=== PATIENT | male | born 2000 | race African-American/Black ===

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

== ENCOUNTER 2023-07-03 04:19 | Inpatient (IN) | payer OTHER ==
[2023-07-03] MEDS ORDERED: SODIUM CHLORIDE 0.9% 500 ML 500 ML IV STA (04:27)
[2023-07-03] MEDS ORDERED: DILTIAZEM DRIP BOLUS FROM BAG 1 MG SOLN IV ONE (04:43)
[2023-07-03] MEDS ORDERED: DILTIAZEM 125 MG in SODIUM CHLORIDE 0.9% 100 ML IV SCH ×2 (04:45→10:42)
[2023-07-03 05:14] LABS: ALT 29 U/L (4-49); African American GFR (CKD) >90 (>60 ml/min/1.73 sqM); Albumin 4.4 g/dL (3.5-5.0); Anion Gap 17 mmol/L; Blood Urea Nitrogen 11 mg/dL (9-20); Carbon Dioxide 17 mmol/L (22-30); Chloride 104 mmol/L (98-107); Glucose 132 mg/dL (74-99); Non-African American GFR(CKD) >90 (>60 ml/min/1.73 sqM); Sodium 138 mmol/L (137-145); Total Bilirubin 0.8 mg/dL (0.2-1.3); Total Protein 7.7 g/dL (6.3-8.2)
[2023-07-03 05:17] LABS: AST 28 U/L (17-59); Alkaline Phosphatase 110 U/L (38-126); Magnesium 1.5 mg/dL (1.6-2.3); Potassium 3.7 mmol/L (3.5-5.1)
[2023-07-03] MEDS ORDERED: MAGNESIUM SULFATE-D5W PMX 1 GM in DEXTROSE/WATER 1 100ML.BAG IVPB ONE (05:23)
[2023-07-03 05:44] LABS: Basophils % (A) 1 %; Eosinophils # (A) 0.4 k/uL (0-0.7); Eosinophils % (A) 6 %; HCT 53.9 % (39.0-53.0); HGB 17.5 gm/dL (13.0-17.5); Lymphocytes # (A) 1.3 k/uL (1.0-4.8); Lymphocytes % (A) 20 %; MCH 27.7 pg (25.0-35.0); MCHC 32.4 g/dL (31.0-37.0); MCV 85.2 fL (80.0-100.0); Mean Platelet Volume 9.2; Monocytes # (A) 0.5 k/uL (0-1.0); Monocytes % (A) 8 %; Neutrophils % (A) 63 %; Platelet Count 166 k/uL (150-450); RBC 6.33 m/uL (4.30-5.90); RDW 14.1 % (11.5-15.5); WBC 6.4 k/uL (4.0-11.0)
[2023-07-03] MEDS ORDERED: HEPARIN SODIUM 1,000 UN/ML (10ML VL) IV PRN (05:51)
[2023-07-03] MEDS ORDERED: HEPARIN SODIUM 1,000 UN/ML (10ML VL) IV ONE (05:51)
--- NOTE | 2023-07-03 05:53 | ED ---
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 Patient presents the ER today via ambulance for evaluation of palpitations. EMS reports they found the patient with heart rates varying from the 150s to 200. No medications were given prior to arrival. Patient reports no history of arrhythmia. Patient states he's gotten all of his care at [facility] but has not followed for a couple of years. Current medications are daily aspirin. - Related Data Home Medications Medication Instructions Recorded Confirmed Aspirin 81 mg PO DAILY 10/11/14 10/11/14 Multivitamin [Children's 1 each PO DAILY 10/11/14 10/11/14 Multivitamins] Previous Rx's Medication Instructions Recorded Amoxicillin 1,000 mg PO Q8H #20 cap 10/17/14 predniSONE 20 mg PO BID #14 tab 10/17/14 Allergies Allergy/AdvReac Type Severity Reaction Status Date / Time No Known Allergies Allergy Verified 07/03/23 04:25 Review of Systems ROS Statement: Those systems with pertinent positive or pertinent negative responses have been documented in the HPI. ROS Other: All systems not noted in ROS Statement are negative. Past Medical History Past Medical History: No Reported History Additional Past Medical History / Comment(s): Cardiac surgeries at [facility]. Sees sld teacher Dr Vitor Macdonald History of Any Multi-Drug Resistant Organisms: None Reported Additional Past Surgical History / Comment(s): heart surgery - "rerouted ventricles" Past Psychological History: No Psychological Hx Reported Smoking Status: Never smoker Past Alcohol Use History: None Reported Past Drug Use History: None Reported - Past Family History Mother Family Medical History: Diabetes Mellitus General Exam - General Exam Comments Initial Comments: Physical Exam GENERAL: Patient is well-developed and well-nourished. Patient is nontoxic and well-hydrated and is in no distress. HENT: Normocephalic, Atraumatic. EYES: PERRL, EOMI PULMONARY: Unlabored respirations. No audible rales rhonchi or wheezing was noted. CARDIOVASCULAR: Large midsternal surgical scar Tachycardic irregularly irregular ABDOMEN: Soft and nontender with normal bowel sounds. SKIN: Skin is clear with no lesions or rashes and otherwise unremarkable. : Deferred NEUROLOGIC: Patient is alert and oriented x3. Moving all extremities spontaneously MUSCULOSKELETAL: Normal extremities with adequate strength and full range of motion. No lower extremity swelling or edema. No calf tenderness. Limitations: no limitations Course Vital Signs 07/03/23 07/03/23 07/03/23 04:22 05:11 05:15 Temperature 98.0 F Pulse Rate 136 H 141 H 135 H Respiratory 20 20 20 Rate Blood Pressure 137/106 117/73 117/73 O2 Sat by Pulse 90 L 94 L 95 Oximetry 07/03/23 07/03/23 07/03/23 05:30 05:45 06:00 Temperature Pulse Rate 128 H 130 H 135 H Respiratory 20 20 20 Rate Blood Pressure 99/79 105/78 104/62 O2 Sat by Pulse 92 L 91 L 93 L Oximetry 07/03/23 06:15 Temperature Pulse Rate 131 H Respiratory 20 Rate Blood Pressure 103/76 O2 Sat by Pulse 92 L Oximetry EKG Findings - EKG Comments: EKG Findings:: EKG interpreted by me, EKG obtained due to tachycardia, EKG obtained at 4:23 AM rate is 145 rhythm is a narrow complex irregularly irregular tachycardia consistent with an atrial flutter with a 2-1 block. There is a rightward axis, no obvious ST elevations or depressions no obvious signs of ischemia or infarction. Medical Decision Making - Medical Decision Making Was pt. sent in by a medical professional or institution (, PA, THREAD CHECKER, urgent care, hospital, or [facility]...) When possible be specific @ -No Did you speak to anyone other than the patient for history (EMS, parent, family, police, friend...)? What history was obtained from this source @ -EMS, sister at bedside Did you review nursing and triage notes (agree or disagree)? Why? @ -I reviewed and agree with nursing and triage notes Were old charts reviewed (outside hosp., previous admission, EMS record, old EKG, old radiological studies, urgent care reports/EKG's, mcc records)? Report findings @ Previous admission for pneumonia was reviewed with a thorough history by the plastics patternmaker Differential Diagnosis (chest pain, altered mental status, abdominal pain women, abdominal pain men, vaginal bleeding, weakness, fever, dyspnea, syncope, headache, dizziness, GI bleed, back pain, seizure, CVA, palpatations, mental health)? @ Differential Palpitations Ventricular arrhythmias, atrial arrhythmias, myocardial infarction, anemia, thyrotoxicosis, electrolyte imbalance, hypokalemia, pulmonary embolism, pulmonary disease, drugs, alcohol, anxiety, stress.... This is not meant to be an all-inclusive list. EKG interpreted by me (3pts min.). @ -As above X-rays interpreted by me (1pt min.). @ No consolidations CT interpreted by me (1pt min.). @ -None done U/S interpreted by me (1pt. min.). @ -None done What testing was considered but not performed or refused? (CT, X-rays, U/S, labs)? Why? @ Echo to be completed upon admission What meds were considered but not given or refused? Why? @ -None Did you discuss the management of the patient with other professionals (professionals i.e. , PA, THREAD CHECKER, lab, RT, psych nurse, social service assistant, estimator printing, teacher, toxics program officer, supervisor case loading)? Give summary @ S with cardiology on-call Dr. Henderson Was smoking cessation discussed for >3mins.? @ -No Was critical care preformed (if so, how long)? @ yes Were there social determinants of health that impacted care today? How? (Homelessness, low income, unemployed, alcoholism, drug addiction, transportat ion, low edu. Level, literacy, decrease access to med. care, senior living, rehab)? @ -Low literacy, cognitive delay Was there de-escalation of care discussed even if they declined (Discuss DNR or withdrawal of care, Hospice)? DNR status @ -No What co-morbidities impacted this encounter? (DM, HTN, Smoking, COPD, CAD, Cancer, CVA, ARF, Chemo, Hep., AIDS, mental health diagnosis, sleep apnea, morbid obesity)? @ Obesity Was patient admitted / discharged? Hospital course, mention meds given and route, prescriptions, significant lab abnormalities, going to OR and other pertinent info. @ Admission Patient was seen and evaluated upon arrival to the emergency department, patient was tachycardic but hemodynamically stable, no completed chest pain felt like his heart was racing and he was feeling very tired. Labs were ordered patient was placed on the semiconductor packages leak tester Patient care was discussed with Dr. Henderson to say based on patient's history he can be treated with Cardizem and heparin like a typical atrial fibrillation, Cardizem was ordered when labs resulted with normal platelet count heparin was ordered. Patient care was discussed Dr. camara who accepts the admission with consult to cardiology. Undiagnosed new problem with uncertain prognosis? @ -No Drug Therapy requiring intensive monitoring for toxicity (Heparin, Nitro, Insulin, Cardizem)? @ -Yes heparin, Cardizem Were any procedures done? @ -No Diagnosis/symptom? @ -A. fib RVR Acute, or Chronic, or Acute on Chronic? @ -Acute Uncomplicated (without systemic symptoms) or Complicated (systemic symptoms)? @ -default Side effects of treatment? @ -No Exacerbation, Progression, or Severe Exacerbation? @ -No Poses a threat to life or bodily function? How? (Chest pain, [place], [place], pneumonia, PE, COPD, DKA, ARF, appy, cholecystitis, CVA, Diverticulitis, Homicidal, Suicidal, threat to staff... and all critical care pts) @ -Unlikely - Lab Data Result diagrams: 07/03/23 04:27 07/03/23 04:27 Lab Results 07/03/23 07/03/23 07/03/23 Range/Units 04:27 04:27 04:27 WBC 6.4 (4.0-11.0) k/uL RBC 6.33 H (4.30-5.90) m/uL Hgb 17.5 (13.0-17.5) gm/dL Hct 53.9 H (39.0-53.0) % MCV 85.2 (80.0-100.0) fL MCH 27.7 (25.0-35.0) pg MCHC 32.4 (31.0-37.0) g/dL RDW 14.1 (11.5-15.5) % Plt Count 166 (150-450) k/uL MPV 9.2 Neutrophils % 63 % Lymphocytes % 20 % Monocytes % 8 % Eosinophils % 6 % Basophils % 1 % Neutrophils # 4.0 (1.3-7.7) k/uL Lymphocytes # 1.3 (1.0-4.8) k/uL Monocytes # 0.5 (0-1.0) k/uL Eosinophils # 0.4 (0-0.7) k/uL Basophils # 0.0 (0-0.2) k/uL PT 14.3 H (10.0-12.5) sec INR 1.4 H (<1.2) APTT 25.4 (22.0-30.0) sec Sodium 138 (137-145) mmol/L Potassium 3.7 (3.5-5.1) mmol/L Chloride 104 (98-107) mmol/L Carbon Dioxide 17 L (22-30) mmol/L Anion Gap 17 mmol/L BUN 11 (9-20) mg/dL Creatinine 0.80 (0.66-1.25) mg/dL Est GFR (CKD-EPI)AfAm >90 (>60 ml/min/1.73 sqM) Est GFR (CKD-EPI)NonAf >90 (>60 ml/min/1.73 sqM) Glucose 132 H (74-99) mg/dL Calcium 9.0 (8.4-10.2) mg/dL Magnesium 1.5 L (1.6-2.3) mg/dL Total Bilirubin 0.8 (0.2-1.3) mg/dL AST 28 (17-59) U/L ALT 29 (4-49) U/L Alkaline Phosphatase 110 (38-126) U/L Troponin I (0.000-0.034) ng/mL Total Protein 7.7 (6.3-8.2) g/dL Albumin 4.4 (3.5-5.0) g/dL TSH 1.790 (0.465-4.680) mIU/L 07/03/23 Range/Units 04:27 WBC (4.0-11.0) k/uL RBC (4.30-5.90) m/uL Hgb (13.0-17.5) gm/dL Hct (39.0-53.0) % MCV (80.0-100.0) fL MCH (25.0-35.0) pg MCHC (31.0-37.0) g/dL RDW (11.5-15.5) % Plt Count (150-450) k/uL MPV Neutrophils % % Lymphocytes % % Monocytes % % Eosinophils % % Basophils % % Neutrophils # (1.3-7.7) k/uL Lymphocytes # (1.0-4.8) k/uL Monocytes # (0-1.0) k/uL Eosinophils # (0-0.7) k/uL Basophils # (0-0.2) k/uL PT (10.0-12.5) sec INR (<1.2) APTT (22.0-30.0) sec Sodium (137-145) mmol/L Potassium (3.5-5.1) mmol/L Chloride (98-107) mmol/L Carbon Dioxide (22-30) mmol/L Anion Gap mmol/L BUN (9-20) mg/dL Creatinine (0.66-1.25) mg/dL Est GFR (CKD-EPI)AfAm (>60 ml/min/1.73 sqM) Est GFR (CKD-EPI)NonAf (>60 ml/min/1.73 sqM) Glucose (74-99) mg/dL Calcium (8.4-10.2) mg/dL Magnesium (1.6-2.3) mg/dL Total Bilirubin (0.2-1.3) mg/dL AST (17-59) U/L ALT (4-49) U/L Alkaline Phosphatase (38-126) U/L Troponin I 0.014 (0.000-0.034) ng/mL Total Protein (6.3-8.2) g/dL Albumin (3.5-5.0) g/dL TSH (0.465-4.680) mIU/L Disposition Clinical Impression: Atrial flutter, 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
[2023-07-03 05:58] LABS: INR 1.4 (<1.2); Partial Thromboplastin Time 25.4 sec (22.0-30.0); Prothrombin Time 14.3 sec (10.0-12.5)
[2023-07-03] MEDS ORDERED: HEPARIN SOD,PORK IN 0.45% NACL 25,000 UNIT in 0.45% NACL 1 250ML.BAG IV SCH (06:00)
[2023-07-03] MEDS ORDERED: NALOXONE 0.4 MG/ML 1 ML VIAL IV PRN (07:07)
--- NOTE | 2023-07-03 07:39 | XR ---
EXAMINATION TYPE: XR chest 1V DATE OF EXAM: 07/03/2023 COMPARISON: 05/09/2016 HISTORY: 22-year-old male with dysrhythmia TECHNIQUE: Single frontal view of the chest is obtained. FINDINGS: Previous thoracic surgery with median sternotomy wires. Heart borderline in size. No conso lidation or pleural effusion. Aorta and pulmonary vasculature is within normal limits. IMPRESSION: Borderline heart size. Previous median sternotomy. No acute process seen.
--- NOTE | 2023-07-03 11:20 | CONS ---
CONSULTATION CHIEF COMPLAINT: New-onset atrial fibrillation. 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 He used to follow with Dr. Sidhu at [facility] but has not seen him in a long time. He has not had any regular cardiac evaluation. He does not have any chest pain or difficulty in breathing. Denies any leg edema, PND, or orthopnea. His predominant symptom is in the form of intermittent palpitations and this has been going on for quite some time now. On his initial presentation to the ER, he was found to be in atrial fibrillation with rapid ventricular rate with heart rates in the 140s. He is treated with intravenous Cardizem and heart rates at the time of my evaluation and more in the 120s to 130s. The patient is currently on heparin. TSH is normal at 1.7, potassium is 3.7, hemoglobin is 17.5, platelet count is 166. Plan at this stage is to control his heart rate, anticoagulate him, and consider cardioversion or sending him back to an adult congenital heart disease expert at [facility] for further care. An echo had been ordered to evaluate his LV function. PAST MEDICAL HISTORY: Significant for double inlet ventricle status post Fontan surgery. MEDICATIONS: Aspirin. ALLERGIES: None. FAMILY HISTORY: Negative for premature coronary artery disease. SOCIAL HISTORY: Negative for current smoking, EtOH abuse or drug abuse. REVIEW OF SYSTEMS: HEENT: Unremarkable. CARDIAC: As described above. RESPIRATORY: As described above. GI: Negative. GENITOURINARY: Negative. ALLERGY/IMMUNOLOGY: Negative. SKIN: Negative. MUSCULOSKELETAL: Significant for arthritis. PSYCHOSOCIAL: Negative. DERM: Negative. CONSTITUTIONAL: Negative. ONCOLOGICAL: Negative. LIFE SUPPORT TECHNICIAN: Negative. Rest of the system review is not relevant. PHYSICAL EXAMINATION: GENERAL: Comfortable at rest. VITAL SIGNS: Heart rate is in the 130s per minute, blood pressure is 106/70, respiratory rate is 18. NECK: There is no jugular venous distention. Carotid upstroke is diminished. There is no bruit. CHEST: Reveals good air entry bilaterally. HEART: Reveals first and second heart sounds irregular rhythm. Systolic murmur at the apex. ABDOMEN: Soft. EXTREMITIES: Did not reveal any edema. Peripheral pulses are felt. LABORATORY DATA: Labs show hemoglobin is 17.5, platelet count is 166, potassium is 3.7, creatinine is 0.8. AST, ALT are within normal limits. TSH is 1.7. EKG shows atrial fibrillation with rapid ventricular rate. ASSESSMENT: 1. New-onset atrial fibrillation with rapid ventricular rate. 2. History of congenital heart disease, status post Fontan surgery. PLAN: We will obtain a 2D echo, control his heart rate with beta blockers. Start the intravenous Cardizem. Continue with the heparin, convert him to oral anticoagulant tomorrow and further course of action based on how his symptoms evolve. MMODL / IJN: [id number] /
[2023-07-03] MEDS: METOPROLOL TARTRATE 25 MG TAB PO SCH ×3 (11:35→20:53)
[2023-07-03 12:20] LABS: Appearance,Urine Clear (Clear); Bilirubin,Urine Negative (Negative); Blood,Urine Negative (Negative); Color,Urine Yellow; Glucose,Urine (UA) Negative (Negative); Ketones,Urine 1+ (Negative); Leukocyte Esterase,Urine Negative (Negative); Mucus,Urine Few /hpf; Nitrite,Urine Negative (Negative); Protein,Urine 1+ (Negative); RBC,Urine 2 /hpf (0-5); Specific Gravity,Urine 1.014 (1.001-1.035); WBC,Urine 1 /hpf (0-5)
[2023-07-03 12:31] LABS: Amphetamine Screen,Urine Not Detected (NotDetected); Barbiturate Screen,Urine Not Detected (NotDetected); Benzodiazepines Screen,Urine Not Detected (NotDetected); Cocaine Screen,Urine Not Detected (NotDetected); Methadone Screen, Urine Not Detected (NotDetected); Opiate Screen,Urine Not Detected (NotDetected); Oxycodone Screen, Urine Not Detected (NotDetected); Phencyclidine Screen,Urine Not Detected (NotDetected); Tricyclic Antidepressant,Urine Not Detected (NotDetected); Urn Cannabinoid Scrn Not Detected (NotDetected)
[2023-07-03] MEDS ORDERED: ACETAMINOPHEN TAB 325 MG TAB PO PRN (14:49)
--- NOTE | 2023-07-03 16:30 | P.HPIM ---
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 He presents with complaints of palpitations and racing heart as well as shortness of breath. EKG reveals atrial fibrillation with rapid ventricular rate up to the 140s. Patient has been admitted to the hospital with cardiology on consultation started on IV heparin and IV cardizem. He denies any chest pain, no dizziness or lightheadedness. Denies any recent illness, fever or chills. Was following up with Dr. Vitor Macdonald out of [facility] has not been seen since 2017. He was having regular follow ups prior to 2017 states that he had issues with transportation and commuting for follow up. Patient lives with his mom, not working currently. He denies any drug use, alcohol use, or smoking history. Echocardiogram completed here was read by [facility] and reveals LV function to be mildly to moderately decreased. Patient is status post modified Fontan p rocedure. Blood work on admission reveals white blood cell count of 6.4, hemoglobin 17.5, INR 1.4, sodium 138, potassium 3.7, BUN 11, creatinine 0.80, glucose of 132, magnesium 1.5. Troponin 0.014, TSH, 1.790. Urinalysis showing 1+ protein, 1+ ketones, few mucus. UDS is negative. Chest xray showing borderline heart size. Previous median sternotomy wires. No consolidation or pleural effusion. Aorta and pulmonary vasculature is within normal limits. REVIEW OF SYSTEMS: CONSTITUTIONAL: No fever, no malaise, no fatigue. HEENT: No recent visual problems or hearing problems. Denied any sore throat. CARDIOVASCULAR: No chest pain, orthopnea, PND, Reports palpitations, no syncope. PULMONARY: No shortness of breath, no cough, no hemoptysis. GASTROINTESTINAL: No diarrhea, no nausea, no vomiting, no abdominal pain. NEUROLOGICAL: No headaches, no weakness, no numbness. HEMATOLOGICAL: Denies any bleeding or petechiae. GENITOURINARY: Denies any burning micturition, frequency, or urgency. MUSCULOSKELETAL/RHEUMATOLOGICAL: Denies any joint pain, swelling, or any muscle pain. ENDOCRINE: Denies any polyuria or polydipsia. The rest of the 14-point review of systems is negative. PHYSICAL EXAMINATION: GENERAL: The patient is alert and oriented x3, not in any acute distress. Well developed, well nourished. HEENT: Pupils are round and equally reacting to light. EOMI. No scleral icterus. No conjunctival pallor. Normocephalic, atraumatic. No pharyngeal erythema. No thyromegaly. CARDIOVASCULAR: S1 and S2 present. No murmurs, rubs, or gallops. Irregularly irregular. PULMONARY: Chest is clear to auscultation, no wheezing or crackles. ABDOMEN: Soft, nontender, nondistended, normoactive bowel sounds. No palpable organomegaly. MUSCULOSKELETAL: No joint swelling or deformity. EXTREMITIES: No cyanosis, clubbing, or pedal edema. NEUROLOGICAL: Gross neurological examination did not reveal any focal deficits. SKIN: No rashes. Assessment and Plan -Atrial fibrillation with rapid ventricular rate new onset currently anticoagulated with IV heparin, on IV cardizem running at 2.5 mls/hr, patient has been started on metoprolol 25 mg TID. Patient is being worked up for transfer to [facility] where he was following with a congenital product safety specialist he may require cardioversion. -Hx of double inlet ventricle s/p modified fontane procedure as an infant has not follow up with specialist since 2017 -Hyperglycemia will check an A1C rule out diabetes mellitus -Hypomagnesemia supplemented with repeat level in for the AM -Obesity with BMI 30.4 GI prophylaxis DVT prophylaxis Full Code More than 35 minutes have been spent in coordination of care and conference with physicians and facilitating hospital transfer to [facility]. The impression and plan of care has been dictated by Laura Javed, Nurse Practitioner as directed. Dr. Kristen MD I have performed a history and physical examination and medical decision making of this patient, discussed the same with the dictator, and agree with the dictators assessment and plan as written, documented as a scribe. Based on total visit time, I have performed more than 50% of this visit. Past Medical History Past Medical History: No Reported History Additional Past Medical History / Comment(s): Cardiac surgeries at [facility]. Sees skills trainer Dr Vitor Macdonald History of Any Multi-Drug Resistant Organisms: None Reported Additional Past Surgical History / Comment(s): heart surgery - "rerouted ventricles" Past Psychological History: No Psychological Hx Reported Smoking Status: Never smoker Past Alcohol Use History: None Reported Past Drug Use History: None Reported - Past Family History Mother Family Medical History: Diabetes Mellitus Medications and Allergies Home Medications Medication Instructions Recorded Confirmed Type Aspirin 81 mg PO DAILY 10/11/14 07/03/23 History Allergies Allergy/AdvReac Type Severity Reaction Status Date / Time No Known Allergies Allergy Verified 07/03/23 08:00 Physical Exam Vitals: Vital Signs Temp Pulse Resp BP Pulse Ox 07/03/23 09:05 130 H 18 106/72 07/03/23 09:00 138 H 9 L 105/61 07/03/23 08:30 130 H 17 96/64 07/03/23 08:00 126 H 10 L 97/72 92 L 07/03/23 07:30 130 H 20 84/68 94 L 07/03/23 07:00 138 H 19 95/66 95 07/03/23 06:30 131 H 6 L 100/66 94 L 07/03/23 06:15 131 H 20 103/76 92 L 07/03/23 06:00 135 H 20 104/62 93 L 07/03/23 05:45 130 H 20 105/78 91 L 07/03/23 05:30 128 H 20 99/79 92 L 07/03/23 05:15 135 H 20 117/73 95 07/03/23 05:11 141 H 20 117/73 94 L 07/03/23 04:22 98.0 F 136 H 20 137/106 90 L Intake and Output 07/02/23 07/03/23 07/03/23 22:59 06:59 14:59 Other: Weight 93.44 kg Results CBC & Chem 7: 07/03/23 04:27 07/03/23 04:27 Labs: Abnormal Lab Results - Last 24 Hours (Table) 07/03/23 07/03/23 07/03/23 Range/Units 04:27 04:27 04:27 RBC 6.33 H (4.30-5.90) m/uL Hct 53.9 H (39.0-53.0) % PT 14.3 H (10.0-12.5) sec INR 1.4 H (<1.2) Carbon Dioxide 17 L (22-30) mmol/L Glucose 132 H (74-99) mg/dL Magnesium 1.5 L (1.6-2.3) mg/dL Assessment and Plan Time with Patient: Greater than 30
[2023-07-03 21:08] VITALS: BP 109/68; PULSE 126; RESP 18; TEMP 98
--- NOTE | 2023-07-03 23:12 | P.DS ---
Providers Date of admission: 07/03/23 07:07 Attending physician: Romulo Pringle MD Consults: 07/03/23 07:07 Consult Physician Routine Consulting Provider: Mau Henderson Consult Reason/Comments: new afib, hx of single ventricle s/p fontan Do you want consulting provider notified?: Already Contacted Primary care physician: Stated None Hospital Course: Final Diagnosis -Atrial fibrillation with rapid ventricular rate new onset currently anticoagulated with IV heparin, on IV cardizem running at 2.5 mls/hr, patient has been started on metoprolol 25 mg TID. Patient is being worked up for transfer to [facility] [place] he was following with a congenital artillery specialist he may require cardioversion. -Hx of double inlet ventricle s/p modified fontane procedure as an infant has not follow up with specialist since 2017 -Hyperglycemia will check an A1C rule out diabetes mellitus -Hypomagnesemia supplemented with repeat level in for the AM -Obesity with BMI 30.4 GI prophylaxis DVT prophylaxis Full Code Patient is stable for transfer to [facility] he has been accepted on Dr. Brendon Guerrier and has received a bed this evening. [facility] providing transportation. 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 He presents with complaints of palpitations and racing heart as well as shortness of breath. EKG reveals atrial fibrillation with rapid ventricular rate up to the 140s. Patient has been admitted to the hospital with cardiology on consultation started on IV heparin and IV cardizem. He denies any chest pain, no dizziness or lightheadedness. Denies any recent illness, fever or chills. Was following up with Dr. Vitor Macdonald out of [facility] has not been seen since 2017. He was having regular follow ups prior to 2017 states that he had issues with transportation and commuting for follow up. Patient lives with his mom, not working currently. He denies any drug use, alcohol use, or smoking history. Echocardiogram completed here was read by [facility] and reveals LV function to be mildly to moderately decreased. Patient is status post modified Fontan procedure. Blood work on admission reveals white blood cell count of 6.4, hemoglobin 17.5, INR 1.4, sodium 138, potassium 3.7, BUN 11, creatinine 0.80, glucose of 132, magnesium 1.5. Troponin 0.014, TSH, 1.790. Urinalysis showing 1+ protein, 1+ ketones, few mucus. UDS is negative. Chest xray showing borderline heart size. Previous median sternotomy wires. No consolidation or pleural effusion. Aorta and pulmonary vasculature is within normal limits. He has been accepted as above at [facility] to the medical ICU. Thank you for allowing us to participate in the care of this patient. The impression and plan of care has been dictated by Laura Javed, Nurse Practitioner as directed. Dr. Kristen MD I have performed a history and physical examination and medical decision making of this patient, discussed the same with the dictator, and agree with the dictators assessment and plan as written, documented as a scribe. Based on total visit time, I have performed more than 50% of this visit. Plan - Discharge Summary Discharge Rx Participant: No New Discharge Prescriptions: No Action Aspirin 81 mg PO DAILY Discharge Medication List Aspirin 81 mg PO DAILY 10/11/14 [History] Follow up Appointment(s)/Referral(s): None,Stated [Primary Care Provider] - 1-2 days
[2023-07-04] MEDS ORDERED: FAMOTIDINE 20 MG TAB PO SCH (09:00)
== END 2023-07-03 23:00 | disposition short-term general hospital (02) | DRG 201 ==
LOC: EC 04:19 → 3SCARD 07:07
PROVIDERS: ADMIT Internal Medicine; ATTEND Internal Medicine
DX: I48.91 Unspecified atrial fibrillation (principal); I48.92 Unspecified atrial flutter; E66.01 Morbid (severe) obesity due to excess calories; E83.42 Hypomagnesemia; E87.6 Hypokalemia; Q20.4 Double inlet ventricle; Z68.30 Body mass index [BMI] 30.0-30.9, adult; R73.9 Hyperglycemia, unspecified; Z28.310 Unvaccinated for COVID-19
CPT/HCPCS: 36415; 71045; 80053; 80306; 81001; 83036; 83735; 84443; 84484; 85025; 85610; 85730; 93005; 93306; 96361; 96365; 96366; 96367; 99285

== ENCOUNTER 2023-08-21 09:46 | Emergency (ER) | payer OTHER ==
[2023-08-21 10:25] VITALS: RESP 16; TEMP 98.6
[2023-08-21] MEDS: SODIUM CHLORIDE 0.9% 500 ML 500 ML IV STA (10:35)
[2023-08-21 10:37] LABS: Basophils % (A) 1 %; Eosinophils # (A) 0.8 k/uL (0-0.7); Eosinophils % (A) 11 %; HGB 17.1 gm/dL (13.0-17.5); Lymphocytes # (A) 1.9 k/uL (1.0-4.8); Lymphocytes % (A) 28 %; MCH 27.5 pg (25.0-35.0); MCHC 32.9 g/dL (31.0-37.0); MCV 83.8 fL (80.0-100.0); Mean Platelet Volume 9.1; Monocytes # (A) 0.5 k/uL (0-1.0); Monocytes % (A) 7 %; Neutrophils # (A) 3.4 k/uL (1.3-7.7); Neutrophils % (A) 51 %; Platelet Count 186 k/uL (150-450); RDW 14.1 % (11.5-15.5); WBC 6.7 k/uL (3.8-10.6)
[2023-08-21 10:45] LABS: INR 1.3 (<1.2); Prothrombin Time 13.3 sec (10.0-12.5)
[2023-08-21 10:57] LABS: ALT 33 U/L (4-49); AST 31 U/L (17-59); African American GFR (CKD) >90 (>60 ml/min/1.73 sqM); Albumin 4.3 g/dL (3.5-5.0); Alkaline Phosphatase 82 U/L (38-126); Anion Gap 9 mmol/L; Blood Urea Nitrogen 6 mg/dL (9-20); Calcium 9.4 mg/dL (8.4-10.2); Carbon Dioxide 23 mmol/L (22-30); Chloride 109 mmol/L (98-107); Glucose 95 mg/dL (74-99); Magnesium 1.7 mg/dL (1.6-2.3); Non-African American GFR(CKD) >90 (>60 ml/min/1.73 sqM); Potassium 4.4 mmol/L (3.5-5.1); Sodium 141 mmol/L (137-145); Total Bilirubin 0.6 mg/dL (0.2-1.3); Total Protein 7.5 g/dL (6.3-8.2)
[2023-08-21 11:59] LABS: Amphetamine Screen,Urine Not Detected (NotDetected); Barbiturate Screen,Urine Not Detected (NotDetected); Benzodiazepines Screen,Urine Not Detected (NotDetected); Cocaine Screen,Urine Not Detected (NotDetected); Methadone Screen, Urine Not Detected (NotDetected); Opiate Screen,Urine Not Detected (NotDetected); Oxycodone Screen, Urine Not Detected (NotDetected); Phencyclidine Screen,Urine Not Detected (NotDetected); Tricyclic Antidepressant,Urine Not Detected (NotDetected); Urn Cannabinoid Scrn Not Detected (NotDetected)
--- NOTE | 2023-08-21 12:10 | ED ---
General Adult HPI - General Chief complaint: Arrhythmia/Palpitations Stated complaint: Heart palpitations, SOB Time Seen by Provider: 08/21/23 09:55 Source: patient, RN notes reviewed, old records reviewed Mode of arrival: EMS Limitations: no limitations - History of Present Illness Initial comments: Is a 23-year-old male who was born with a double inlet syndrome. Patient had 2 surgeries when he was a child and has had a history of atrial fibrillation since then. Patient comes in today because prior to arrival approximately 1 hour he started having palpitations occasionally and it made him short of breath and a little bit lightheaded. Patient denies any actual chest pain or pressure. Patient denies headache patient has numbness weakness. Patient denies any back pain. Patient denies any abdominal pain patient has nausea vomiting diarrhea. Patient has any recent fever chills or cough - Related Data Home Medications Medication Instructions Recorded Confirmed Aspirin 81 mg PO DAILY 10/11/14 07/03/23 Allergies Allergy/AdvReac Type Severity Reaction Status Date / Time No Known Allergies Allergy Verified 07/03/23 08:00 Review of Systems ROS Statement: Those systems with pertinent positive or pertinent negative responses have been documented in the HPI. ROS Other: All systems not noted in ROS Statement are negative. Past Medical History Past Medical History: No Reported History Additional Past Medical History / Comment(s): Cardiac surgeries at [employer]. Sees expeller operator Dr Vitor Macdonald. NOS A-fib RVR 07/03/2023 History of Any Multi-Drug Resistant Organisms: None Reported Additional Past Surgical History / Comment(s): heart surgery - "rerouted ventricles" unilateral ventricle with Fontan surgery at 6months and 17 months Past Psychological History: No Psychological Hx Reported Smoking Status: Never smoker Past Alcohol Use History: None Reported Past Drug Use History: None Reported - Past Family History Mother Family Medical History: Diabetes Mellitus General Exam - General Exam Comments Initial Comments: GENERAL: Patient is well-developed and well-nourished. Patient is nontoxic and well- hydrated and is in mild distress. ENT: Neck is soft and supple. No significant lymphadenopathy is noted. Oropharynx is clear. Moist mucous membranes. Neck has full range of motion without eliciting any pain. EYES: The sclera were anicteric and conjunctiva were pink and moist. Extraocular movements were intact and pupils were equal round and reactive to light. Eyelids were unremarkable. PULMONARY: Unlabored respirations. Good breath sounds bilaterally. No audible rales rhonchi or wheezing was noted. CARDIOVASCULAR: There is a regular rate and rhythm without any murmurs gallops or rubs. ABDOMEN: Soft and nontender with normal bowel sounds. SKIN: Skin is clear with no lesions or rashes and otherwise unremarkable. NEUROLOGIC: Patient is alert and oriented x3. Cranial nerves II through XII are grossly intact. Motor and sensory are also intact. Normal speech, volume and content. Symmetrical smile. MUSCULOSKELETAL: Normal extremities with adequate strength and full range of motion. No lower extremity swelling or edema. No calf tenderness. LYMPHATICS: No significant lymphadenopathy is noted PSYCHIATRIC: Patient is mildly anxious Limitations: no limitations Course Vital Signs 08/21/23 09:53 Temperature 98.6 F Pulse Rate 82 Respiratory 16 Rate Blood Pressure 147/88 O2 Sat by Pulse 93 L Oximetry Medical Decision Making - Medical Decision Making EKG is interpreted by myself. EKG shows sinus rhythm 87 bpm parables 257 QRS is 105 QT interval 344 QTc is 389. Patient has T wave inversions in V1 through V4 which were seen on the previous EKG. Was pt. sent in by a medical professional or institution (, PA, WELL LOGGING MUD ANALYSIS CAPTAIN, urgent care, hospital, or [place] health care facility...) When possible be specific @ -No Did you speak to anyone other than the patient for history (EMS, parent, family, police, friend...)? What history was obtained from this source @ -No Did you review nursing and triage notes (agree or disagree)? Why? @ -I reviewed and agree with nursing and triage notes Were old charts reviewed (outside hosp., previous admission, EMS record, old EKG, old radiological studies, urgent care reports/EKG's, [place] health care facility records)? Report findings @ -I reviewed prior charts and prior lab work on this patient Differential Diagnosis (chest pain, altered mental status, abdominal pain women, abdominal pain men, vaginal bleeding, weakness, fever, dyspnea, syncope, headache, dizziness, GI bleed, back pain, seizure, CVA, palpatations, mental health, musculoskeletal)? @ -Differential Palpitations Ventricular arrhythmias, atrial arrhythmias, myocardial infarction, anemia, thyrotoxicosis, electrolyte imbalance, hypokalemia, pulmonary embolism, pulmonary disease, drugs, alcohol, anxiety, stress.... This is not meant to be an all-inclusive list. EKG interpreted by me (3pts min.). @ -As above X-rays interpreted by me (1pt min.). @ -Chest x-ray shows mild cardiomegaly CT interpreted by me (1pt min.). @ -None done U/S interpreted by me (1pt. min.). @ -None done What testing was considered but not performed or refused? (CT, X-rays, U/S, labs)? Why? @ -None What meds were considered but not given or refused? Why? @ -None Did you discuss the management of the patient with other professionals (professionals i.e. Dr., PA, WELL LOGGING MUD ANALYSIS CAPTAIN, lab, RT, psych nurse, social science teacher, supervisor feed mill, teacher, president and chief operating officer, lining caser)? Give summary @ -No Was smoking cessation discussed for >3mins.? @ -No Was critical care preformed (if so, how long)? @ -No Were there social determinants of health that impacted care today? How? (Homelessness, low income, unemployed, alcoholism, drug addiction, transportation, low edu. Level, literacy, decrease access to med. care, usp, rehab)? @ -No Was there de-escalation of care discussed even if they declined (Discuss DNR or withdrawal of care, Hospice)? DNR status @ -No What co-morbidities impacted this encounter? (DM, HTN, Smoking, COPD, CAD, Cancer, CVA, ARF, Chemo, Hep., AIDS, mental health diagnosis, sleep apnea, morbid obesity)? @ -None Was patient admitted / discharged? Hospital course, mention meds given and route, prescriptions, significant lab abnormalities, going to OR and other pertinent info. @ -Patient had no more palpitations while in the emergency department all lab work was normal. X-ray of the chest showed mild cardiomegaly patient has no symptoms at this time. Patient will follow-up with his expeller operator. Undiagnosed new problem with uncertain prognosis? @ -No Drug Therapy requiring intensive monitoring for toxicity (Heparin, Nitro, Insulin, Cardizem)? @ -No Were any procedures done? @ -No Diagnosis/symptom? @ -Palpitation Acute, or Chronic, or Acute on Chronic? @ -Acute Uncomplicated (without systemic symptoms) or Complicated (systemic symptoms)? @ -Complicated Side effects of treatment? @ -No Exacerbation, Progression, or Severe Exacerbation? @ -No Poses a threat to life or bodily function? How? (Chest pain, [place], [place], pneumonia, PE, COPD, DKA, ARF, appy, cholecystitis, CVA, Diverticulitis, Homicidal, Suicidal, threat to staff... and all critical care pts) @ -No - Lab Data Result diagrams: 08/21/23 10:19 08/21/23 10:19 Lab Results 08/21/23 08/21/23 08/21/23 Range/Units 10:14 10:19 10:19 WBC 6.7 (3.8-10.6) k/uL RBC 6.20 H (4.30-5.90) m/uL Hgb 17.1 (13.0-17.5) gm/dL Hct 52.0 (39.0-53.0) % MCV 83.8 (80.0-100.0) fL MCH 27.5 (25.0-35.0) pg MCHC 32.9 (31.0-37.0) g/dL RDW 14.1 (11.5-15.5) % Plt Count 186 (150-450) k/uL MPV 9.1 Neutrophils % 51 % Lymphocytes % 28 % Monocytes % 7 % Eosinophils % 11 % Basophils % 1 % Neutrophils # 3.4 (1.3-7.7) k/uL Lymphocytes # 1.9 (1.0-4.8) k/uL Monocytes # 0.5 (0-1.0) k/uL Eosinophils # 0.8 H (0-0.7) k/uL Basophils # 0.0 (0-0.2) k/uL PT 13.3 H (10.0-12.5) sec INR 1.3 H (<1.2) APTT 27.0 (22.0-30.0) sec Sodium (137-145) mmol/L Potassium (3.5-5.1) mmol/L Chloride (98-107) mmol/L Carbon Dioxide (22-30) mmol/L Anion Gap mmol/L BUN (9-20) mg/dL Creatinine (0.66-1.25) mg/dL Est GFR (CKD-EPI)AfAm (>60 ml/min/1.73 sqM) Est GFR (CKD-EPI)NonAf (>60 ml/min/1.73 sqM) Glucose (74-99) mg/dL Calcium (8.4-10.2) mg/dL Magnesium (1.6-2.3) mg/dL Total Bilirubin (0.2-1.3) mg/dL AST (17-59) U/L ALT (4-49) U/L Alkaline Phosphatase (38-126) U/L Troponin I (0.000-0.034) ng/mL Total Protein (6.3-8.2) g/dL Albumin (3.5-5.0) g/dL TSH (0.465-4.680) mIU/L Urine Opiates Screen Not Detected (NotDetected) Ur Oxycodone Screen Not Detected (NotDetected) Urine Methadone Screen Not Detected (NotDetected) Ur Barbiturates Screen Not Detected (NotDetected) U Tricyclic Antidepress Not Detected (NotDetected) Ur Phencyclidine Scrn Not Detected (NotDetected) Ur Amphetamines Screen Not Detected (NotDetected) U Methamphetamines Scrn Not Detected (NotDetected) U Benzodiazepines Scrn Not Detected (NotDetected) Urine Cocaine Screen Not Detected (NotDetected) U Marijuana (THC) Screen Not Detected (NotDetected) 08/21/23 08/21/23 Range/Units 10:19 10:19 WBC (3.8-10.6) k/uL RBC (4.30-5.90) m/uL Hgb (13.0-17.5) gm/dL Hct (39.0-53.0) % MCV (80.0-100.0) fL MCH (25.0-35.0) pg MCHC (31.0-37.0) g/dL RDW (11.5-15.5) % Plt Count (150-450) k/uL MPV Neutrophils % % Lymphocytes % % Monocytes % % Eosinophils % % Basophils % % Neutrophils # (1.3-7.7) k/uL Lymphocytes # (1.0-4.8) k/uL Monocytes # (0-1.0) k/uL Eosinophils # (0-0.7) k/uL Basophils # (0-0.2) k/uL PT (10.0-12.5) sec INR (<1.2) APTT (22.0-30.0) sec Sodium 141 (137-145) mmol/L Potassium 4.4 (3.5-5.1) mmol/L Chloride 109 H (98-107) mmol/L Carbon Dioxide 23 (22-30) mmol/L Anion Gap 9 mmol/L BUN 6 L (9-20) mg/dL Creatinine 0.56 L (0.66-1.25) mg/dL Est GFR (CKD-EPI)AfAm >90 (>60 ml/min/1.73 sqM) Est GFR (CKD-EPI)NonAf >90 (>60 ml/min/1.73 sqM) Glucose 95 (74-99) mg/dL Calcium 9.4 (8.4-10.2) mg/dL Magnesium 1.7 (1.6-2.3) mg/dL Total Bilirubin 0.6 (0.2-1.3) mg/dL AST 31 (17-59) U/L ALT 33 (4-49) U/L Alkaline Phosphatase 82 (38-126) U/L Troponin I <0.012 (0.000-0.034) ng/mL Total Protein 7.5 (6.3-8.2) g/dL Albumin 4.3 (3.5-5.0) g/dL TSH 2.000 (0.465-4.680) mIU/L Urine Opiates Screen (NotDetected) Ur Oxycodone Screen (NotDetected) Urine Methadone Screen (NotDetected) Ur Barbiturates Screen (NotDetected) U Tricyclic Antidepress (NotDetected) Ur Phencyclidine Scrn (NotDetected) Ur Amphetamines Screen (NotDetected) U Methamphetamines Scrn (NotDetected) U Benzodiazepines Scrn (NotDetected) Urine Cocaine Screen (NotDetected) U Marijuana (THC) Screen (NotDetected) Disposition Clinical Impression: Palpitations Disposition: HOME SELF-CARE Condition: Good Instructions (If sedation given, give patient instructions): Heart Palpitations (ED) Is patient prescribed a controlled substance at d/c from ED?: No Referrals: None,Stated [Primary Care Provider] - 1-2 days Time of Disposition: 12:25
--- NOTE | 2023-08-21 12:18 | XR ---
EXAMINATION TYPE: XR chest 2V DATE OF EXAM: 08/21/2023 11:19 AM CLINICAL INDICATION:Male, 23 years old with history of dysrhythmia; COMPARISON: Chest radiographs from 07/03/2023. TECHNIQUE: XR chest 2V Frontal and lateral views of the chest. FINDINGS: Lungs/Pleura: There is no evidence of pleural effusion, focal consolidation, or pneumothorax. Pulmonary vascularity: Unremarkable. Heart/mediastinum: Cardiomediastinal silhouette is prominent in size. Postsurgical changes to the hea rt. Musculoskeletal: No acute osseous pathology. IMPRESSION: No acute cardiopulmonary disease/process.
[2023-08-21 13:02] VITALS: BP 130/86; PULSE 80
== END 2023-08-21 12:25 | disposition home or self-care (01) ==
LOC: EC 09:46
DX: R00.2 Palpitations (principal); I48.91 Unspecified atrial fibrillation; Z79.82 Long term (current) use of aspirin
CPT/HCPCS: 36415; 71046; 80053; 80306; 83735; 84443; 84484; 85025; 85610; 85730; 93005; 96360; 99285